=== PATIENT | female | born 1985 | race Caucasian/White ===

== ENCOUNTER 2019-02-01 18:49 | Emergency (ER) | payer BC ==
[2019-02-01 19:09] VITALS: TEMP 98.2
--- NOTE | 2019-02-01 19:48 | ED ---
General Adult HPI - General Chief complaint: Psychiatric Symptoms Stated complaint: EPS eval Time Seen by Provider: 02/01/19 19:00 Source: patient, RN notes reviewed Mode of arrival: ambulatory Limitations: no limitations - History of Present Illness Initial comments: This is a 33-year-old female presents emergency department stating she wants to be evaluated because lately she thinks any mental breakdown. Patient states she's been extremely stressed at work. 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 Patient states now she can't anything but crying and cannot function. Patient states she's been unable to work. Patient states she's not eating and lost 13 pounds. Patient denies any physical complaints today. Patient denies any suicidal homicidal ideations. Patient denies any chest pain difficulty breathing shortness of breath per patient denies any abdominal pain patient denies nausea vomiting diarrhea. Patient denies any recent fever chills - Related Data Home Medications Medication Instructions Recorded Confirmed Dicyclomine [Bentyl] 10 mg PO TID 02/01/19 02/01/19 Sertraline [Zoloft] 100 mg PO DAILY 02/01/19 02/01/19 Tetrahydrozoline 0.05% Ophth 1 drop BOTH EYES DAILY PRN 02/01/19 02/01/19 [Visine Eye Drops] clonazePAM [KlonoPIN] 0.5 mg PO BID 02/01/19 02/01/19 Allergies Allergy/AdvReac Type Severity Reaction Status Date / Time Sulfa (Sulfonamide Allergy Rash/Hives Verified 02/01/19 19:47 Antibiotics) Review of Systems ROS Statement: Those systems with pertinent positive or pertinent negative responses have been documented in the HPI. ROS Other: All systems not noted in ROS Statement are negative. Past Medical History Past Medical History: No Reported History History of Any Multi-Drug Resistant Organisms: None Reported Additional Past Surgical History / Comment(s): LEEP procedure Past Psychological History: Anxiety, Depression Smoking Status: Never smoker Past Alcohol Use History: None Reported Past Drug Use History: None Reported General Exam - General Exam Comments Initial Comments: GENERAL: Patient is well-developed and well-nourished. Patient is nontoxic and well- hydrated and is in no acute distress. ENT: Neck is soft and supple. No significant lymphadenopathy is noted. Oropharynx is clear. Moist mucous membranes. Neck has full range of motion without eliciting any pain. EYES: The sclera were anicteric and conjunctiva were pink and moist. Extraocular movements were intact and pupils were equal round and reactive to light. Eyelids were unremarkable. PULMONARY: Unlabored respirations. Good breath sounds bilaterally. No audible rales rhonchi or wheezing was noted. CARDIOVASCULAR: There is a regular rate and rhythm without any murmurs gallops or rubs. ABDOMEN: Soft and nontender with normal bowel sounds. No palpable organomegaly was noted. There is no palpable pulsatile mass. SKIN: Skin is clear with no lesions or rashes and otherwise unremarkable. NEUROLOGIC: Patient is alert and oriented x3. Cranial nerves II through XII are grossly intact. Motor and sensory are also intact. Normal speech, volume and content. Symmetrical smile. MUSCULOSKELETAL: Normal extremities with adequate strength and full range of motion. LYMPHATICS: No significant lymphadenopathy is noted PSYCHIATRIC: Patient is very anxious and tearful throughout the interview. Patient denies suicidal or homicidal ideations. Patient states she feels as though she does needs inpatient treatment because she can't handle life at home all she does is cry and does not eat. Limitations: no limitations Course Vital Signs 02/01/19 19:03 Temperature 98.2 F Pulse Rate 116 H Respiratory 18 Rate Blood Pressure 132/79 O2 Sat by Pulse 96 Oximetry Medical Decision Making - Medical Decision Making EPS evaluated the patient and determined the patient could follow-up as an outpatient. - Lab Data Lab Results 02/01/19 Range/Units 19:45 Urine Opiates Screen Not Detected (NotDetected) Ur Oxycodone Screen Not Detected (NotDetected) Urine Methadone Screen Not Detected (NotDetected) Ur Propoxyphene Screen Not Detected (NotDetected) Ur Barbiturates Screen Not Detected (NotDetected) U Tricyclic Antidepress Not Detected (NotDetected) Ur Phencyclidine Scrn Not Detected (NotDetected) Ur Amphetamines Screen Not Detected (NotDetected) U Methamphetamines Scrn Not Detected (NotDetected) U Benzodiazepines Scrn Detected H (NotDetected) Urine Cocaine Screen Not Detected (NotDetected) U Marijuana (THC) Screen Detected H (NotDetected) Disposition Clinical Impression: Acute anxiety, Depression Disposition: HOME SELF-CARE Condition: Good Instructions (If sedation given, give patient instructions): Depression (ED), Anxiety (ED) Additional Instructions: Patient should follow-up per EPS's directions. Is patient prescribed a controlled substance at d/c from ED?: No Referrals: Unruly Travis NPC [Primary Care Provider] - 1-2 days Time of Disposition: 21:03
[2019-02-01 20:14] LABS: Amphetamine Screen,Urine Not Detected (NotDetected); Barbiturate Screen,Urine Not Detected (NotDetected); Benzodiazepines Screen,Urine Detected (NotDetected); Cocaine Screen,Urine Not Detected (NotDetected); Methadone Screen, Urine Not Detected (NotDetected); Opiate Screen,Urine Not Detected (NotDetected); Oxycodone Screen, Urine Not Detected (NotDetected); Phencyclidine Screen,Urine Not Detected (NotDetected); Tricyclic Antidepressant,Urine Not Detected (NotDetected); Urn Cannabinoid Scrn Detected (NotDetected)
[2019-02-01 21:57] VITALS: BP 100/64; PULSE 82; RESP 16
== END 2019-02-01 22:18 | disposition home or self-care (01) ==
LOC: EC 18:49
DX: F32.9 Major depressive disorder, single episode, unspecified (principal); F41.9 Anxiety disorder, unspecified; R45.83 Excessive crying of child, adolescent or adult; R63.8 Other symptoms and signs concerning food and fluid intake; R63.4 Abnormal weight loss; Z88.2 Allergy status to sulfonamides; Z79.899 Other long term (current) drug therapy; Z63.79 Other stressful life events affecting family and household
CPT/HCPCS: 80306; 82075; 99284

== ENCOUNTER → 2019-07-17 | Outpatient (CLI) | payer BC ==
--- NOTE | 2019-07-17 14:28 | XR ---
EXAMINATION TYPE: XR cervical spine comp DATE OF EXAM: 07/17/2019 COMPARISON: None HISTORY: Cervicalgia fall TECHNIQUE: Five-view cervical spine FINDINGS: There is slight kyphosis which can be positional or related to muscle spasm. Prevertebral s pace is normal. Disc heights are preserved. Vertebral body heights are preserved. Posterior spinal la mellar line is intact. Remainder patent. IMPRESSION: 1. Slight kyphosis in otherwise normal cervical spine.
== END | disposition home or self-care (01) ==
LOC: RADXRMAIN 14:01
PROVIDERS: ATTEND Physician Assistant
DX: M41.82 Other forms of scoliosis, cervical region (principal); M54.2 Cervicalgia
CPT/HCPCS: 72050